=== PATIENT | female | born 1970 | race Two or more races ===

== ENCOUNTER 2024-05-31 12:37 | Outpatient (CLI) | payer OTHER | END 2024-05-31 12:46 | disposition home or self-care (01) | LOC: RAD 12:37 | PROVIDERS: ATTEND Orthopaedic Surgery | DX: M25.561 Pain in right knee (principal); M25.562 Pain in left knee ==

== ENCOUNTER 2024-06-01 15:41 | Outpatient (CLI) | payer OTHER | END 2024-06-01 15:55 | disposition home or self-care (01) | LOC: RAD 15:41 | PROVIDERS: ATTEND Orthopaedic Surgery | DX: M25.551 Pain in right hip (principal); M25.552 Pain in left hip ==